=== PATIENT | female | born 1940 | race Caucasian/White ===

== ENCOUNTER 2021-07-01 14:03 | Emergency (ER) | payer MEDICARE, OTHER ==
[~2021-07-01] VITALS: Ht 170.2 cm; Wt 63.5 kg
[2021-07-01] MEDS ORDERED: ONDANSETRON ODT4 MG PO (14:56)
[2021-07-01] MEDS ORDERED: TRAMADOL HCL 50 MG TAB PO ONE (15:00)
[2021-07-01] MEDS ORDERED: ONDANSETRON HCL 4 MG ORAL DISINTEGRATING TAB PO ONE (15:00)
== END 2021-07-01 15:31 | disposition home or self-care (01) ==
LOC: FSED 14:08
DX: S06.0X0A Concussion without loss of consciousness, initial encounter (principal); S52.501A Unspecified fracture of the lower end of right radius, initial encounter for closed fracture; W01.0XXA Fall on same level from slipping, tripping and stumbling without subsequent striking against object, initial encounter; Y92.007 Garden or yard of unspecified non-institutional (private) residence as the place of occurrence of the external cause; I10 Essential (primary) hypertension
CPT/HCPCS: 29125; 70450; 73110; 99283; Q0162